=== PATIENT | female | born 1960 | race Two or more races ===

== ENCOUNTER 2021-05-05 07:49 | Outpatient (CLI) | payer OTHER | END 2021-05-05 07:54 | disposition home or self-care (01) | LOC: NUCLEAR 07:49 | PROVIDERS: ATTEND Internal Medicine Cardiovascular Disease | DX: I73.9 Peripheral vascular disease, unspecified (principal) ==

== ENCOUNTER 2022-02-17 07:17 | Outpatient (CLI) | payer OTHER | END 2022-02-17 07:21 | disposition home or self-care (01) | LOC: NUCLEAR 07:17 | PROVIDERS: ATTEND Internal Medicine Cardiovascular Disease | DX: I10 Essential (primary) hypertension (principal) | CPT/HCPCS: 78452; 93017; A9500 ==

== ENCOUNTER 2023-02-20 07:11 | Outpatient (CLI) | payer OTHER | END 2023-02-20 07:12 | disposition home or self-care (01) | LOC: NUCLEAR 07:11 | PROVIDERS: ATTEND Internal Medicine Cardiovascular Disease | DX: I25.10 Atherosclerotic heart disease of native coronary artery without angina pectoris (principal) | CPT/HCPCS: 78452; 93017; A9500 ==